=== PATIENT | female | born 1955 | race Two or more races ===

== ENCOUNTER 2021-11-17 00:12 | Emergency (ER) | payer BC ==
[~2021-11-17] VITALS: Ht 165.1 cm; Wt 54.0 kg
[2021-11-17] MEDS ORDERED: CEPHALEXIN500 MG PO (02:43)
== END 2021-11-17 02:51 ==
LOC: ER 00:12
DX: S01.01XA Laceration without foreign body of scalp, initial encounter (principal); W18.39XA Other fall on same level, initial encounter; Y93.89 Activity, other specified; Y92.89 Other specified places as the place of occurrence of the external cause; Y99.9 Unspecified external cause status; Z88.6 Allergy status to analgesic agent; Z88.8 Allergy status to other drugs, medicaments and biological substances